=== PATIENT | female | born 1975 | race Caucasian/White ===

== ENCOUNTER → 2017-08-29 | Outpatient (CLI) | payer OTHER ==
[~2017-08-29] MED LIST: D-ME245.; YAZMIN
--- NOTE | 2017-09-06 20:25 | Diagnostic Imaging Report ---
INDICATION: Routine screening. EXAMINATION: Bilateral digital screening mammogram with CAD. The current study was also evaluated with a Computer Aided Detection (CAD) system. COMPARISON: No prior mammograms are available for comparison. FINDINGS: Both breasts are heterogeneously dense, limiting the sensitivity of mammography. Diffuse benign-appearing calcifications are identified, bilaterally. There are circumscribed nodular densities noted in the upper and outer aspect of the right breast. These have fairly benign features but additional views are recommended. The left breast is unremarkable. No malignant appearing microcalcifications are seen. The axillae are unremarkable. IMPRESSION: BI-RADS 0 Right breast nodular densities, likely owing to benign etiologies; however, due to absence of prior mammograms, additional views and ultrasound are recommended for further evaluation. ACR BI-RADS Category 0: Incomplete. (Needs additional imaging evaluation). Result letter will be mailed to the patient. Note: At least 10% of breast cancer is not imaged by mammography. Dictated by: Dictated on workstation # [id number]
== END ==
LOC: RAD 07:51
PROVIDERS: ATTEND Nurse Practitioner
DX: Z12.31 Encounter for screening mammogram for malignant neoplasm of breast (principal)
CPT/HCPCS: 77067

== ENCOUNTER → 2017-09-21 | Outpatient (CLI) | payer OTHER ==
--- NOTE | 2017-09-21 19:29 | Diagnostic Imaging Report ---
Unilateral diagnostic right mammogram with 3-D tomosynthesis. INDICATION: Abnormal mammogram. The current study was also evaluated with a Computer Aided Detection (CAD) system. FINDINGS: The screening mammogram performed on 08/29/17 noted a few nodular circumscribed densities in the upper-outer aspect of the right breast. Compression views of this portion of the breast in the CC and MLO projection offer little more diagnostic information than seen on the screening mammogram as the fibroglandular tissue in the right breast is quite dense. There does appear to be at least one nodular density in the central portion of the breast on the ML view. In reviewing the tomographic images, I do feel that the areas in question are most likely benign. Even so, I would recommend that ultrasound of the right breast be performed for further study. IMPRESSION: Ultrasound would be recommended for further evaluation of the benign-appearing nodular densities in the right breast. ACR BI-RADS Category 0: Incomplete. (Needs additional imaging evaluation). Result letter will be mailed to the patient. Note: At least 10% of breast cancer is not imaged by mammography. Dictated by: Dictated on workstation # [id number]
--- NOTE | 2017-09-21 19:59 | Diagnostic Imaging Report ---
INDICATION: Abnormal mammogram. EXAMINATION: Ultrasound of the right breast. FINDINGS: The screening mammogram performed on 08/29/2017 noted circumscribed nodular densities in the upper-outer aspect of the right breast. The diagnostic mammogram performed earlier today suggested that these were most likely benign. On this study, there are a few benign-appearing cysts in the right breast. This includes two cysts in the 12 o'clock position, measuring 1.8 and 1.6 cm in size and another cyst in the 10 o'clock position, roughly 7 cm from the nipple, measuring 1.0 cm in size. There are no solid lesions to suggest malignancy. IMPRESSION: 1. There are three benign-appearing cysts in the right breast. There is no evidence for malignancy. 2. The patient should have her annual bilateral screening mammogram on schedule in August 2018. ACR BI-RADS Category 2 : Benign Result letter will be mailed to the patient. Note: At least 10% of breast cancer is not imaged by mammography. Dictated by: Dictated on workstation # [id number]
== END ==
LOC: RAD 08:07
PROVIDERS: ATTEND Nurse Practitioner
DX: N60.01 Solitary cyst of right breast (principal)

== ENCOUNTER → 2021-06-14 | Outpatient (CLI) | payer BC, OTHER ==
--- NOTE | 2021-06-14 12:47 | Diagnostic Imaging Report ---
INDICATION: Routine screening. COMPARISON: 08/29/2017 and 05/20/2016. TECHNIQUE: 2D and 3D bilateral screening mammography was performed with CAD. FINDINGS: Both breasts are heterogeneously dense, limiting the sensitivity of mammography. There are scattered benign-appearing calcifications in both breasts. Benign-appearing nodular densities in both breasts appear stable. No spiculated mass or malignant-appearing microcalcifications are seen. The axillae are unremarkable. IMPRESSION: No mammographic features suspicious for malignancy are identified. ACR BI-RADS Category 2: Benign findings. Result letter will be mailed to the patient. Note: At least 10% of breast cancer is not imaged by mammography. Dictated by: Dictated on workstation # [id number]
== END ==
LOC: RAD 08:15
PROVIDERS: ATTEND Surgery
DX: Z12.31 Encounter for screening mammogram for malignant neoplasm of breast (principal)
CPT/HCPCS: 77063; 77067